=== PATIENT | female | born 1995 | race African-American/Black ===

== ENCOUNTER 2017-03-13 20:14 | Inpatient (IN) ==
[2017-03-13 23:07] LABS: Basophils % 0.4 % (0.0-0.8); Hemoglobin 11.6 GM/DL (12.0-16.0); Immature Granulocytes % 0.4 %; Immature Granulocytes Absolute 0.01 #; Lymphocytes # 1.1 10*3/uL (1.4-4.0); Lymphocytes % 40.4 % (21.3-54.2); Mean Corpuscular HGB Conc 32.2 GM/DL (32-36); Mean Corpuscular Hemoglobin 22 PG (27-34); Mean Corpuscular Volume 68.7 FL (87-102); Mean Platelet Volume 10.9 FL (9.6-12.0); Monocytes # 0.5 10*3/uL (0.11-0.8); Monocytes % 17.3 % (1.7-12.7); Neutrophils # 1.2 10*3/uL (1.4-7.4); Neutrophils % 41.5 % (38.7-73.9); Platelet Count 187 T/CUMM (130-400); Red Blood Count 5.24 MC/CUMM (3.8-5.5); Red Cell Distribution Width 15.6 % (9.3-17.3); White Blood Count 2.8 T/CUMM (4-12)
[2017-03-13 23:15] LABS: Apearance,Urine Slightly Hazy (Clear); Bilirubin,Urine Negative (Negative); Blood, Urine Large mg/dL (Negative); Glucose,Urine (UA) Negative (Negative); Ketones,Urine 20 mg/dL (Negative); Mucus,Urine Occasional /LPF (Occasional); Nitrite,Urine Negative (Negative); Protein,Urine 30 MG/DL; RBC,Urine 123 /HPF (0-4); Squamous Epithelial Cell,Urine Occasional /HPF (0-10); Transitional Epi Cells,Urine Occasional /HPF (<1); Urine Color Yellow (Yellow); Urine Specific Gravity 1.018 (1.001-1.035); WBC,Urine 34 /HPF (0-6)
[2017-03-13 23:27] LABS: Bilirubin,Total 0.6 MG/DL (0.2-1.0); Calcium 9.1 MG/DL (8.5-10.1); Magnesium 2.2 MG/DL (1.8-2.4); Osmolality,Calculated 264.2 MOS/KG (273-304); Potassium 3.6 MMOL/L (3.5-5.1); Total Protein 8.6 G/DL (6.4-8.3)
[2017-03-14] MEDS ORDERED: SODIUM CHLORIDE 0.9% 1,000 ML IV STA (01:24)
[2017-03-14] MEDS ORDERED: PIPERACILLIN/TAZOBACTAM 3,375 MG in SODIUM CHLORIDE 0.9% 100 ML IV STA (01:24)
[2017-03-14 02:11] LABS: Anisocytosis 1+; Band Neutrophils 4 % (0-10); Hypochromasia 2+; Lymphocytes 39 % (20-55); Microcytosis 1+; Ovalocytes 1+; Platelet Estimate Normal; Segmented Neutrophils 40 % (50-85); Target Cells 1+; Total Cells Counted 100
[2017-03-14] MEDS ORDERED: PIPERACILLIN/TAZOBACTAM 3,375 MG VIAL IV ONE (03:09)
[2017-03-14] MEDS ORDERED: SODIUM CHLORIDE 0.9% 100 ML IV ONE (03:09)
[2017-03-14] MEDS ORDERED: ACETAMINOPHEN 500 MG TABLET ONE (03:18)
[2017-03-14] MEDS ORDERED: ACETAMINOPHEN 500 MG TABLET PO STA (03:35)
[2017-03-14] MEDS ORDERED: MORPHINE 2 MG/1 ML SYRINGE IV PRN (05:44)
[2017-03-14] MEDS ORDERED: SODIUM CHLORIDE 0.9% 1,000 ML IV ONE (05:44)
[2017-03-14 06:29] LABS: Lactic Acid 0.8 MMOL/L (0.4-2.0)
[2017-03-14 06:35] LABS: Risk Ratio 4.07; Thyroid Stimulating Hormone 1.61 uIU/ml (0.358-3.74); VLDL CHOLESTEROL 15.6 MG/DL
[2017-03-14 06:36] LABS: Albumin 3.4 G/DL (3.4-5.0); Bilirubin,Direct 0.24 MG/DL (0.0-0.20); Bilirubin,Indirect 0.7 MG/DL (0.0-1.0); Bilirubin,Total 0.9 MG/DL (0.2-1.0); Free T4 (Free Thyroxine) 1.46 NG/DL (0.76-1.46); Total Protein 7.2 G/DL (6.4-8.3)
[2017-03-14] MEDS: SODIUM CHLORIDE 0.9% 1,000 ML IV SCH ×3 (06:40→21:44)
[2017-03-14] MEDS: ENOXAPARIN 40 MG/0.4 ML SYRINGE SUBCUT SCH (08:25)
[2017-03-14] MEDS: PANTOPRAZOLE 40 MG VIAL IV SCH (08:26)
[2017-03-14] MEDS: cefTRIAXone 1,000 MG in SYRINGE 1 EACH IV SCH ×2 (08:26→21:39)
[2017-03-14] MEDS: PROMETHAZINE 25 MG TABLET PO PRN ×2 (08:36→21:09)
[2017-03-14 09:58] LABS: HIV Antigen/Antibody Result Nonreactive (Nonreactive)
[2017-03-14 12:24] LABS: Hepatitis A Ab IgM Quant < 0.02 Index; Hepatitis A Ab IgM Result Negative (Negative); Hepatitis B Core IgM Quant 0.14 Index; Hepatitis B Core IgM Result Negative (Negative); Hepatitis B Surface Ag Quant < 0.10 Index; Hepatitis B Surface Ag Result Negative (Negative); Hepatitis C Virus Ab Quant 0.04 Index; Hepatitis C Virus Ab Result Negative (Negative)
[2017-03-14] MEDS: ACETAMINOPHEN 325 MG TABLET PO PRN (16:33)
[2017-03-15] MEDS: SODIUM CHLORIDE 0.9% 1,000 ML IV SCH ×2 (06:45→14:02)
[2017-03-15] MEDS: PROMETHAZINE 25 MG TABLET PO PRN ×2 (08:53→20:40)
[2017-03-15 09:12] LABS: Hematocrit 29.4 VOL% (35.7-47.0); Immature Granulocytes % 0.4 %; Immature Granulocytes Absolute 0.01 #; Lymphocytes # 1.1 10*3/uL (1.4-4.0); Lymphocytes % 39.3 % (21.3-54.2); Mean Corpuscular HGB Conc 31.3 GM/DL (32-36); Mean Corpuscular Hemoglobin 22 PG (27-34); Mean Corpuscular Volume 69.5 FL (87-102); Mean Platelet Volume 12.5 FL (9.6-12.0); Monocytes # 0.5 10*3/uL (0.11-0.8); Monocytes % 18.1 % (1.7-12.7); Neutrophils # 1.1 10*3/uL (1.4-7.4); Neutrophils % 42.2 % (38.7-73.9); Red Blood Count 4.23 MC/CUMM (3.8-5.5); Red Cell Distribution Width 15.7 % (9.3-17.3); White Blood Count 2.7 T/CUMM (4-12)
[2017-03-15 09:23] LABS: Hemoglobin 9.2 GM/DL (12.0-16.0); Platelet Count 276 T/CUMM (130-400)
[2017-03-15 09:32] LABS: Albumin 2.8 G/DL (3.4-5.0); Calcium 7.8 MG/DL (8.5-10.1); Osmolality,Calculated 276.3 MOS/KG (273-304); Potassium 3.5 MMOL/L (3.5-5.1); Total Protein 6.2 G/DL (6.4-8.3)
[2017-03-15] MEDS: ENOXAPARIN 40 MG/0.4 ML SYRINGE SUBCUT SCH (09:48)
[2017-03-15] MEDS: PANTOPRAZOLE 40 MG VIAL IV SCH (09:50)
[2017-03-15] MEDS: cefTRIAXone 1,000 MG in SYRINGE 1 EACH IV SCH ×2 (09:55→21:07)
[2017-03-15 10:12] LABS: Band Neutrophils 1 % (0-10); Elliptocytes Few; Hypochromasia 2+; Lymphocytes 39 % (20-55); Microcytosis 1+; Platelet Estimate Normal; Segmented Neutrophils 47 % (50-85); Total Cells Counted 100
[2017-03-15] MEDS: ACETAMINOPHEN 325 MG TABLET PO PRN (14:00)
[2017-03-16] MEDS: SODIUM CHLORIDE 0.9% 1,000 ML IV SCH (02:16)
[2017-03-16] MEDS: ACETAMINOPHEN 325 MG TABLET PO PRN (05:25)
[2017-03-16 05:27] LABS: Hematocrit 28.8 VOL% (35.7-47.0); Lymphocytes # 1.3 10*3/uL (1.4-4.0); Lymphocytes % 55.6 % (21.3-54.2); Mean Corpuscular HGB Conc 31.3 GM/DL (32-36); Mean Corpuscular Hemoglobin 22 PG (27-34); Mean Corpuscular Volume 69.7 FL (87-102); Mean Platelet Volume 12.3 FL (9.6-12.0); Monocytes # 0.4 10*3/uL (0.11-0.8); Monocytes % 16.3 % (1.7-12.7); Neutrophils # 0.7 10*3/uL (1.4-7.4); Neutrophils % 28.1 % (38.7-73.9); Platelet Count 274 T/CUMM (130-400); Red Blood Count 4.13 MC/CUMM (3.8-5.5); Red Cell Distribution Width 15.9 % (9.3-17.3); White Blood Count 2.4 T/CUMM (4-12)
[2017-03-16 05:34] LABS: Albumin 2.8 G/DL (3.4-5.0); Bilirubin,Total 0.8 MG/DL (0.2-1.0); Calcium 8.2 MG/DL (8.5-10.1); Osmolality,Calculated 279.1 MOS/KG (273-304); Potassium 3.4 MMOL/L (3.5-5.1); Total Protein 6.3 G/DL (6.4-8.3)
[2017-03-16 06:15] LABS: Anisocytosis 2+; Band Neutrophils 1 % (0-10); Lymphocytes 46 % (20-55); Metamyelocytes 2 %; Microcytosis 1+; Myelocytes 1 %; Platelet Estimate Normal; Segmented Neutrophils 32 % (50-85); Total Cells Counted 100
[2017-03-16 06:17] LABS: Hypochromasia 2+; Target Cells 1+
[2017-03-16] MEDS: PROMETHAZINE 25 MG TABLET PO PRN (09:48)
[2017-03-16] MEDS: PANTOPRAZOLE 40 MG VIAL IV SCH (09:49)
[2017-03-16] MEDS: ENOXAPARIN 40 MG/0.4 ML SYRINGE SUBCUT SCH (09:54)
[2017-03-16] MEDS ORDERED: POTASSIUM CHLORIDE 20 MEQ TABLET PO ONE (10:17)
[2017-03-16 10:39] LABS: % Iron Saturation 18.3 % (18-50)
[2017-03-16] MEDS: cefTRIAXone 1,000 MG in SYRINGE 1 EACH IV SCH (11:13)
[2017-03-16 12:05] VITALS: BP 99/61
== END 2017-03-16 12:53 | disposition home or self-care (01) | DRG 866 ==
LOC: N.ED 20:14 → SUATTDRO 03-14 02:54 → N.EDINP 03-14 02:54 → N.3E 03-14 05:26
PROVIDERS: ADMIT Internal Medicine; ATTEND Internal Medicine

== ENCOUNTER 2017-03-17 08:31 | Inpatient (IN) ==
[2017-03-17] MEDS ORDERED: SODIUM CHLORIDE 0.9% 500 ML IV STA (09:47)
[2017-03-17 09:56] LABS: Basophils % 0.4 % (0.0-0.8); Hematocrit 32.5 VOL% (35.7-47.0); Hemoglobin 10.4 GM/DL (12.0-16.0); Immature Granulocytes % 0.4 %; Immature Granulocytes Absolute 0.01 #; Lymphocytes # 1.1 10*3/uL (1.4-4.0); Mean Corpuscular Hemoglobin 22 PG (27-34); Mean Corpuscular Volume 69.6 FL (87-102); Mean Platelet Volume 10.8 FL (9.6-12.0); Monocytes # 0.4 10*3/uL (0.11-0.8); Monocytes % 16.9 % (1.7-12.7); Neutrophils % 39.3 % (38.7-73.9); Platelet Count 266 T/CUMM (130-400); Red Blood Count 4.67 MC/CUMM (3.8-5.5); Red Cell Distribution Width 15.9 % (9.3-17.3); White Blood Count 2.5 T/CUMM (4-12)
[2017-03-17 10:04] LABS: INR 1.1; PT Patient Result 11.4 SECS
[2017-03-17 10:13] LABS: Lactic Acid 0.9 MMOL/L (0.4-2.0)
[2017-03-17 10:16] LABS: Alanine Aminotransferase 149 U/L (13-56); Albumin 3.2 G/DL (3.4-5.0); Alkaline Phosphatase 67 U/L (45-117); Aspartate Amino Transferase 135 U/L (0-37); Blood Urea Nitrogen 5 MG/DL (7-18); Calcium 8.4 MG/DL (8.5-10.1); Glucose 98 MG/DL (74-106); Osmolality,Calculated 271.7 MOS/KG (273-304); Potassium 3.4 MMOL/L (3.5-5.1); Sodium 138 MMOL/L (136-145); Troponin I Only < 0.015 NG/ML (0.00-0.045)
[2017-03-17 10:19] LABS: Apearance,Urine CLOUDY (Clear); Bilirubin,Urine Negative (Negative); Blood, Urine Large mg/dL (Negative); Glucose,Urine (UA) Negative (Negative); Ketones,Urine 5 mg/dL (Negative); Mucus,Urine Occasional /LPF (Occasional); Nitrite,Urine Negative (Negative); Protein,Urine 100 MG/DL; RBC,Urine 2122 /HPF (0-4); Squamous Epithelial Cell,Urine Occasional /HPF (0-10); Urine Color Amber (Yellow); Urine Specific Gravity 1.018 (1.001-1.035); Urine Urobilinogen < 2.0 EU/DL (0.2-1.0); WBC,Urine 29 /HPF (0-6)
[2017-03-17 11:01] LABS: Hypochromasia 1+; Lymphocytes 42 % (20-55); Platelet Estimate Adequate; Segmented Neutrophils 46 % (50-85); Total Cells Counted 100
[2017-03-17 11:02] LABS: Microcytosis Slight; Ovalocytes Slight
[2017-03-17] MEDS ORDERED: ONDANSETRON 4 MG/2 ML VIAL IV PRN (11:42)
[2017-03-17] MEDS ORDERED: ACETAMINOPHEN 325 MG TABLET PO PRN (11:42)
[2017-03-17] MEDS ORDERED: HYDROmorphone 2 MG/1 ML VIAL IV PRN (11:42)
[2017-03-17] MEDS ORDERED: ENOXAPARIN 40 MG/0.4 ML SYRINGE SUBCUT SCH (12:00)
[2017-03-17 12:41] LABS: Hepatitis A Ab IgM Quant < 0.02 Index; Hepatitis A Ab IgM Result Negative (Negative); Hepatitis B Core IgM Quant 0.14 Index; Hepatitis B Core IgM Result Negative (Negative); Hepatitis B Surface Ag Quant < 0.10 Index; Hepatitis B Surface Ag Result Negative (Negative); Hepatitis C Virus Ab Quant 0.04 Index; Hepatitis C Virus Ab Result Negative (Negative)
[2017-03-17 12:45] LABS: HIV Antigen/Antibody Result Nonreactive (Nonreactive)
[2017-03-17 13:42] LABS: Barbiturates Screen,Urine Negative (Negative); Benzodiazepines Screen,Urine Negative (Negative); Cannabinoid Screen,Urine Negative (Negative); Opiate Screen,Urine Negative (Negative); Phencyclidine Screen,Urine Negative (Negative)
[2017-03-17 14:03] LABS: Salicylate < 2.8 MG/DL (2.8-20)
[2017-03-17 14:04] LABS: Acetaminophen < 2.0 UG/ML (10-30)
[2017-03-17] MEDS ORDERED: PANTOPRAZOLE 40 MG VIAL IV ONE (15:11)
[2017-03-17] MEDS: SODIUM CHLORIDE 0.9% 1,000 ML IV SCH ×2 (15:30→20:56)
[2017-03-18] MEDS: SODIUM CHLORIDE 0.9% 1,000 ML IV SCH ×3 (03:01→20:44)
[2017-03-18 05:41] LABS: Eosinophils % 0.6 % (0.00-10.9); Hematocrit 29.4 VOL% (35.7-47.0); Hemoglobin 9.2 GM/DL (12.0-16.0); Immature Granulocytes % 1.1 %; Immature Granulocytes Absolute 0.02 #; Lymphocytes # 1.1 10*3/uL (1.4-4.0); Lymphocytes % 60.8 % (21.3-54.2); Mean Corpuscular HGB Conc 31.3 GM/DL (32-36); Mean Corpuscular Hemoglobin 22 PG (27-34); Mean Platelet Volume 12.5 FL (9.6-12.0); Monocytes # 0.3 10*3/uL (0.11-0.8); Monocytes % 16.6 % (1.7-12.7); Neutrophils # 0.4 10*3/uL (1.4-7.4); Neutrophils % 20.9 % (38.7-73.9); Platelet Count 287 T/CUMM (130-400); White Blood Count 1.8 T/CUMM (4-12)
[2017-03-18 06:14] LABS: Albumin 2.8 G/DL (3.4-5.0); Bilirubin,Total 0.5 MG/DL (0.2-1.0); Calcium 8.2 MG/DL (8.5-10.1); Osmolality,Calculated 278.1 MOS/KG (273-304); Potassium 3.9 MMOL/L (3.5-5.1)
[2017-03-18 06:21] LABS: Band Neutrophils 1 % (0-10); Eosinophils 1 % (0-10); Lymphocytes 54 % (20-55); Segmented Neutrophils 26 % (50-85); Total Cells Counted 100
[2017-03-18 06:22] LABS: Elliptocytes Few; Giant Platelets Few; Hypochromasia 1+; Microcytosis Slight; Platelet Estimate Adequate
[2017-03-18] MEDS: PANTOPRAZOLE 40 MG VIAL IV SCH (08:43)
[2017-03-18] MEDS ORDERED: PROPOFOL 200 MG/20 ML VIAL IV ONE (11:22)
[2017-03-18] MEDS ORDERED: LIDOCAINE 2% 5 ML VIAL ONE (11:22)
[2017-03-19] MEDS: SODIUM CHLORIDE 0.9% 1,000 ML IV SCH ×2 (04:25→12:09)
[2017-03-19] MEDS: PANTOPRAZOLE 40 MG VIAL IV SCH (09:44)
[2017-03-20] MEDS: SODIUM CHLORIDE 0.9% 1,000 ML IV SCH (07:28)
[2017-03-20 07:42] LABS: Bilirubin,Total 0.8 MG/DL (0.2-1.0); Calcium 8.4 MG/DL (8.5-10.1); Total Protein 6.4 G/DL (6.4-8.3)
[2017-03-20 07:46] LABS: Bilirubin,Direct 0.17 MG/DL (0.0-0.20); Bilirubin,Indirect 0.2 MG/DL (0.0-1.0); Bilirubin,Total 0.4 MG/DL (0.2-1.0); Total Protein 6.5 G/DL (6.4-8.3)
[2017-03-20] MEDS: PANTOPRAZOLE 40 MG VIAL IV SCH (09:48)
[2017-03-20 15:25] LABS: IgA Serum (MAYO) 181 mg/dL (61 - 356)
[2017-03-20] MEDS ORDERED: DIAZEPAM 5 MG TABLET PO ONE (16:17)
[2017-03-21] MEDS ORDERED: DIAZEPAM 5 MG TABLET PO ONE (06:00)
[2017-03-21 06:22] LABS: Tissue Transglutaminase IgA Ab < 1.2 U/mL
[2017-03-21 11:23] LABS: Albumin 3.2 G/DL (3.4-5.0); Bilirubin,Direct 0.13 MG/DL (0.0-0.20); Bilirubin,Indirect 0.4 MG/DL (0.0-1.0); Bilirubin,Total 0.5 MG/DL (0.2-1.0); Total Protein 6.6 G/DL (6.4-8.3)
[2017-03-21 11:47] LABS: % Iron Saturation 38.9 % (18-50); Ferritin 591.8 ng/ml (8-252)
[2017-03-21 12:10] LABS: Folate 4.5 NG/ML (5.4-24.0)
[2017-03-21] MEDS: PANTOPRAZOLE 40 MG VIAL IV SCH (12:47)
[2017-03-22 03:39] LABS: Eosinophils % 1.5 % (0.00-10.9); Hemoglobin 9.7 GM/DL (12.0-16.0); Immature Granulocytes % 0.4 %; Immature Granulocytes Absolute 0.01 #; Lymphocytes # 1.4 10*3/uL (1.4-4.0); Mean Corpuscular HGB Conc 31.3 GM/DL (32-36); Mean Corpuscular Hemoglobin 22 PG (27-34); Mean Corpuscular Volume 70.3 FL (87-102); Mean Platelet Volume 11.6 FL (9.6-12.0); Monocytes # 0.5 10*3/uL (0.11-0.8); Monocytes % 18.1 % (1.7-12.7); Neutrophils # 0.7 10*3/uL (1.4-7.4); Platelet Count 380 T/CUMM (130-400); Red Blood Count 4.41 MC/CUMM (3.8-5.5); Red Cell Distribution Width 16.2 % (9.3-17.3); White Blood Count 2.6 T/CUMM (4-12)
[2017-03-22 04:05] LABS: Elliptocytes Few; Eosinophils 1 % (0-10); Lymphocytes 54 % (20-55); Platelet Estimate Normal; Segmented Neutrophils 31 % (50-85); Total Cells Counted 100; Toxic Granulation 1+
[2017-03-22 04:21] LABS: Calcium 8.2 MG/DL (8.5-10.1); Potassium 3.4 MMOL/L (3.5-5.1)
[2017-03-22] MEDS: PANTOPRAZOLE 40 MG VIAL IV SCH (08:23)
[2017-03-23 02:51] LABS: Basophils % 0.3 % (0.0-0.8); Eosinophils # 0.1 10*3/uL (0.0-0.87); Hematocrit 30.1 VOL% (35.7-47.0); Hemoglobin 9.5 GM/DL (12.0-16.0); Immature Granulocytes % 0.3 %; Immature Granulocytes Absolute 0.01 #; Lymphocytes # 1.9 10*3/uL (1.4-4.0); Mean Corpuscular HGB Conc 31.6 GM/DL (32-36); Mean Corpuscular Hemoglobin 22 PG (27-34); Mean Corpuscular Volume 70.7 FL (87-102); Mean Platelet Volume 11.3 FL (9.6-12.0); Monocytes # 0.7 10*3/uL (0.11-0.8); Monocytes % 22.3 % (1.7-12.7); Neutrophils # 0.6 10*3/uL (1.4-7.4); Neutrophils % 18.1 % (38.7-73.9); Platelet Count 385 T/CUMM (130-400); Red Blood Count 4.26 MC/CUMM (3.8-5.5); Red Cell Distribution Width 16.6 % (9.3-17.3); White Blood Count 3.3 T/CUMM (4-12)
[2017-03-23 03:15] LABS: Bilirubin,Direct 0.13 MG/DL (0.0-0.20); Bilirubin,Indirect 0.8 MG/DL (0.0-1.0); Bilirubin,Total 0.9 MG/DL (0.2-1.0); Calcium 8.6 MG/DL (8.5-10.1); Osmolality,Calculated 281.8 MOS/KG (273-304); Potassium 3.7 MMOL/L (3.5-5.1); Total Protein 6.3 G/DL (6.4-8.3)
[2017-03-23 07:52] LABS: Eosinophils 6 % (0-10); Hypochromasia 1+; Lymphocytes 45 % (20-55); Macrocytosis 1+; Nucleated Red Blood Cells 1 (0-5); Platelet Estimate Adequate; Segmented Neutrophils 27 % (50-85); Target Cells Slight; Total Cells Counted 100
[2017-03-23] MEDS: PANTOPRAZOLE 40 MG VIAL IV SCH (08:08)
[2017-03-23 15:38] VITALS: BP 92/64
[2017-03-24 07:40] LABS: Hemoglobin A1 (Alkaline) 97.5 % (96.5-98.5); Hemoglobin A2 (Alkaline) 2.5 % (1.5-3.5)
[2017-03-25 12:00] LABS: EBV Nuclear Ag Antibody Positive (Negative); EBV Virus IgG Ab Positive (Negative); EBV Virus IgM Ab Negative (Negative)
== END 2017-03-23 15:51 | disposition home or self-care (01) | DRG 439 ==
LOC: N.ED 08:31 → N.EDINP 11:26 → SUATTDRO 11:26 → N.TELEN 18:35 → N.4E 03-20 13:17
PROVIDERS: ADMIT Internal Medicine; ATTEND Internal Medicine